=== PATIENT | male | born 1975 | race Caucasian/White ===

== ENCOUNTER 2019-10-18 14:15 | Outpatient (CLI) | payer OTHER ==
--- NOTE | 2019-10-18 14:33 | RAD ---
EXAM: XR Lumbar Spine 2 Or 3 View PROVIDED CLINICAL HISTORY: [employer]SI disability determination. Low back pain. COMPARISON: None FINDINGS: There are 5 nonrib-bearing lumbar-type vertebral bodies. The vertebral body heights are within normal limits. There is narrowing of the L5-S1 intervertebral disc space. Osteophytes are seen anteriorly at the level of the L4 vertebral body as well as involving the lower thoracic spine. No fracture or s ubluxation is identified. Surgical clips overlie the right upper quadrant. 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
== END 2019-10-18 14:16 | disposition home or self-care (01) ==
LOC: NAV RAD 14:15
PROVIDERS: ATTEND Family Medicine
DX: M54.9 Dorsalgia, unspecified (principal); M47.816 Spondylosis without myelopathy or radiculopathy, lumbar region; M47.814 Spondylosis without myelopathy or radiculopathy, thoracic region
CPT/HCPCS: 72100